=== PATIENT | male | born 1970 | race Caucasian/White ===

== ENCOUNTER 2021-05-10 02:10 | Emergency (ER) | payer SELFPAY ==
[~2021-05-10] VITALS: Ht 182.9 cm; Wt 83.9 kg
[2021-05-10 02:10] VITALS: BP 140/85
--- NOTE | 2021-05-10 02:10 | NUR ---
FELISA HORNER TAKEN TO BED #10
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
--- NOTE | 2021-05-10 03:25 | NUR ---
PATIENT RESPONSIVE TO VERBAL STIMULI, PATIENT REMAINS ON CARDIAC MONTIOR. VSS. BED IS LOCKED AND IN LOWEST POSITION. PATIENT REMOVED FROM 2L NC AND CURRENTLY ON 99% ON RA.
--- NOTE | 2021-05-10 05:31 | NUR ---
Patient appears to be resting comfortably in bed. Vital Signs within normal limits. Respirations even and unlabored.
--- NOTE | 2021-05-10 06:43 | NUR ---
IV removed, catheter intact and site benign. Applied folded 4x4 gauze and tape to stop bleeding.
--- NOTE | 2021-05-10 06:44 | NUR ---
Patient presented to facility under the influence of Unknown Substance. Patient is currently ambulatory with steady gait, able to walk unassisted. Positive gag reflex. Alert and oriented. Is not driving self for discharge out of facility. Bus pass given for transportation.
--- NOTE | 2021-05-10 06:45 | NUR ---
Patient discharged with v/s stable. Written and verbal after care instructions given and explained. Patient verbalized understanding. Ambulatory with steady gait. All questions addressed prior to discharge. Advised to follow up with PMD.
[2021-05-10 06:47] VITALS: BP 106/71
== END 2021-05-10 06:45 | disposition home or self-care (01) ==
LOC: MED 02:10
DX: T65.91XA Toxic effect of unspecified substance, accidental (unintentional), initial encounter (principal); R41.82 Altered mental status, unspecified; Y92.89 Other specified places as the place of occurrence of the external cause
CPT/HCPCS: 99285